=== PATIENT | female | born 1995 | race Caucasian/White ===

== ENCOUNTER 2019-07-26 19:46 | Inpatient (IN) | payer OTHER ==
[2019-07-26] MEDS ORDERED: LACTATED RINGER'S 1,000 ML IV (20:37)
[2019-07-26] MEDS ORDERED: CARBOPROST 250 MCG INJ IM (21:00)
[2019-07-26] MEDS ORDERED: MISOPROSTOL 200 MCG TAB PR (21:00)
[2019-07-26] MEDS ORDERED: IBUPROFEN 600 MG TAB PO (21:00)
[2019-07-26] MEDS ORDERED: METHYLERGONOVINE 0.2 MG INJ IM (21:00)
[2019-07-26] MEDS ORDERED: BUTORPHANOL 2 MG INJ IV ×2 (21:00)
[2019-07-26] MEDS ORDERED: OXYTOCIN 30 UNITS/LR 500 ML IV ×2 (21:00)
[2019-07-26] MEDS: LACTATED RINGER'S 1,000 ML IV (22:15)
[2019-07-26] MEDS: AMPICILLIN 2 GM/NS (PMX) 100 ML IVPB (22:19)
[2019-07-26 22:20] LABS: ADD UMIC YES; UR ASCORBIC ACID NEGATIVE (NEGATIVE); UR BILIRUBIN (Dip) NEGATIVE (NEGATIVE); UR BLOOD (Dip) NEGATIVE (NEGATIVE); UR CLARITY SLIGHTLY CLOUDY (CLEAR); UR COLOR STRAW (YELLOW); UR GLUCOSE (Dip) NEGATIVE (NEGATIVE); UR KETONES (Dip) NEGATIVE (NEGATIVE); UR LEUKOCYTE ESTERASE (Dip) 1+ Leu/ul (NEGATIVE); UR NITRITE (Dip) NEGATIVE (NEGATIVE); UR RBC 0 /HPF (0-5); UR SPECIFIC GRAVITY (Dip) 1.008 (1.003-1.030); UR SQUAMOUS EPITHELIAL CELL FEW /HPF (FEW); UR TOTAL PROTEIN (Dip) NEGATIVE (NEGATIVE); UR UROBILINOGEN (Dip) NEGATIVE (NEGATIVE); UR WBC 2 /HPF (0-5)
[2019-07-26 22:23] LABS: ADD MAN DIFF? NO
[2019-07-26 22:25] LABS: BASOPHILS % 0.4 % (0.0-2.0); EOSINOPHILS # 0.1 10^3/ul (0.0-0.5); EOSINOPHILS % 1.1 % (0.0-7.0); HEMATOCRIT 41.5 % (37.0-47.0); LYMPHOCYTES # 1.7 10^3/ul (0.8-2.9); LYMPHOCYTES % 23.9 % (15.0-51.0); MEAN CORPUSCULAR HEMOGLOBIN 33.1 pg (29.0-33.0); MEAN CORPUSCULAR HGB CONC 33.7 g/dl (32.0-37.0); MEAN CORPUSCULAR VOLUME 98.1 fl (82.0-101.0); MEAN PLATELET VOLUME 9.4 fl (7.4-10.4); MONOCYTE # 0.6 10^3/ul (0.3-0.9); NEUTROPHIL # 4.6 10^3/ul (1.6-7.5); NEUTROPHILS % 65.5 % (39.0-77.0); PLATELET COUNT 260 10^3/UL (140-415); RED BLOOD COUNT 4.23 10^6/ul (4.20-5.40); RED CELL DISTRIBUTION WIDTH 12.1 % (11.5-14.5)
[2019-07-26 22:42] LABS: ALANINE AMINOTRANSFERASE 19 IU/L (13-69); ALBUMIN 3.4 g/dl (3.3-4.9); ALBUMIN/GLOBULIN RATIO 0.94; ALKALINE PHOSPHATASE 209 IU/L (42-121); ANION GAP 8 (5-13); ASPARTATE AMINO TRANSFERASE 23 IU/L (15-46); BILIRUBIN,INDIRECT 0.2 mg/dl (0-1.1); BILIRUBIN,TOTAL 0.2 mg/dl (0.2-1.3); BLOOD UREA NITROGEN 9 mg/dl (7-20); CALCIUM 9.6 mg/dl (8.4-10.2); CARBON DIOXIDE 20 mmol/L (21-31); CHLORIDE 107 mmol/L (97-110); CREATININE 0.55 mg/dl (0.44-1.00); Estimated GFR > 60 mL/min (>60); GLUCOSE 88 mg/dl (70-220); SODIUM 135 mmol/L (135-144)
[2019-07-26 22:44] LABS: INR 0.81; PROTIME 11.3 Sec (11.9-14.9); PT RATIO 0.9
[2019-07-26 23:12] LABS: HEPATITIS B SURFACE ANTIGEN NEGATIVE (NEGATIVE)
[2019-07-27] MEDS: OXYTOCIN 30 UNITS/LR 500 ML IV (01:08)
[2019-07-27] MEDS: AMPICILLIN 1 GM/NS (PMX) 50 ML IVPB ×2 (02:46→06:22)
[2019-07-27] MEDS: LACTATED RINGER'S 1,000 ML IV ×2 (08:44→15:33)
[2019-07-27] MEDS: MISOPROSTOL 50 MCG CAPSULE PO ×3 (13:00→21:00)
[2019-07-27 16:20] LABS: RAPID PLASMA REAGIN NONREACTIVE (NR)
[2019-07-28] MEDS: LACTATED RINGER'S 1,000 ML IV ×3 (00:37→10:47)
[2019-07-28] MEDS: MISOPROSTOL 50 MCG CAPSULE PO ×3 (01:00→09:00)
[2019-07-28] MEDS ORDERED: FENTAnyl 2MCG/ML-ROPIV 0.2% 100 ML (04:39)
[2019-07-28] MEDS ORDERED: NALOXONE (0.4 MG/ML) INJ IV ×2 (05:00→14:30)
[2019-07-28] MEDS: FENTAnyl 2MCG/ML-ROPIV 0.2% 100 ML BAG EPI (11:44)
[2019-07-28] MEDS: MINERAL OIL LIGHT 10 ML VIAL TOP (12:15)
[2019-07-28] MEDS: OXYTOCIN 30 UNITS/LR 500 ML IV ×2 (12:30→17:22)
[2019-07-28] MEDS: LIDOCAINE 1% (MPF) 30 ML INJ INJ (12:47)
[2019-07-28] MEDS ORDERED: METHYLERGONOVINE 0.2 MG INJ IM (13:00)
[2019-07-28] MEDS ORDERED: NACL 0.9% 3 ML SYG IV (13:00)
[2019-07-28] MEDS ORDERED: MISOPROSTOL 200 MCG TAB PR (13:00)
[2019-07-28] MEDS ORDERED: CARBOPROST 250 MCG INJ IM (13:00)
[2019-07-28] MEDS ORDERED: OXYTOCIN 30 UNITS/LR 500 ML IV (13:00)
[2019-07-28] MEDS ORDERED: OXYCODONE/ASPIRIN (4.88/325) TAB PO ×2 (13:00)
[2019-07-28] MEDS ORDERED: DIPHENHYDRAMINE 25 MG CAP PO (13:00)
[2019-07-28] MEDS: BENZOCAINE 20% 56 ML SPRAY TOP (17:19)
[2019-07-28] MEDS: WITCH HAZEL/GLYCERIN PAD PR (17:20)
[2019-07-28] MEDS: LANOLIN HPA 1 PKT TOP (17:20)
[2019-07-28] MEDS: IBUPROFEN 600 MG TAB PO (17:23)
[2019-07-28] MEDS: SENNA/DOCUSATE NA (8.6MG/50MG) TAB PO (22:08)
[2019-07-29] MEDS: IBUPROFEN 600 MG TAB PO ×4 (00:20→17:56)
[2019-07-29 08:00] LABS: ADD MAN DIFF? NO
[2019-07-29 08:05] LABS: WHITE BLOOD COUNT 12.7 10^3/ul (4.8-10.8)
[2019-07-29 08:05] LABS: BASOPHIL # 0.1 10^3/ul (0.0-0.1); BASOPHILS % 0.4 % (0.0-2.0); EOSINOPHILS # 0.1 10^3/ul (0.0-0.5); EOSINOPHILS % 0.7 % (0.0-7.0); HEMATOCRIT 35.2 % (37.0-47.0); HEMOGLOBIN 11.8 g/dl (12.0-16.0); LYMPHOCYTES # 2.5 10^3/ul (0.8-2.9); LYMPHOCYTES % 19.3 % (15.0-51.0); MEAN CORPUSCULAR HEMOGLOBIN 33.1 pg (29.0-33.0); MEAN CORPUSCULAR HGB CONC 33.5 g/dl (32.0-37.0); MEAN CORPUSCULAR VOLUME 98.9 fl (82.0-101.0); MEAN PLATELET VOLUME 9.9 fl (7.4-10.4); MONOCYTE # 0.8 10^3/ul (0.3-0.9); MONOCYTES % 5.9 % (0.0-11.0); NEUTROPHIL # 9.3 10^3/ul (1.6-7.5); NEUTROPHILS % 72.8 % (39.0-77.0); PLATELET COUNT 236 10^3/UL (140-415); RED BLOOD COUNT 3.56 10^6/ul (4.20-5.40); RED CELL DISTRIBUTION WIDTH 12.3 % (11.5-14.5)
[2019-07-29] MEDS: SENNA/DOCUSATE NA (8.6MG/50MG) TAB PO ×2 (08:54→22:12)
[2019-07-29] MEDS: WITCH HAZEL/GLYCERIN PAD PR (22:13)
[2019-07-30] MEDS: IBUPROFEN 600 MG TAB PO ×3 (00:26→11:59)
[2019-07-30] MEDS: SENNA/DOCUSATE NA (8.6MG/50MG) TAB PO (09:23)
== END 2019-07-30 13:40 | disposition home or self-care (01) | DRG 805 ==
LOC: OBT 19:46 → PP1 07-28 15:10 → L-D 19:46 → OBT 20:30 → L-D 20:30
PROC: 10E0XZZ Delivery of Products of Conception, External Approach (ICD-10-PCS; principal; 2019-07-28)
PROC: 3E033VJ Introduction of Other Hormone into Peripheral Vein, Percutaneous Approach (ICD-10-PCS; 2019-07-28)
DX: O69.81X0 Labor and delivery complicated by cord around neck, without compression, not applicable or unspecified (principal); K83.1 Obstruction of bile duct; O26.62 Liver and biliary tract disorders in childbirth; Z3A.39 39 weeks gestation of pregnancy; Z37.0 Single live birth
CPT/HCPCS: 62322; 76815; 80053; 81001; 85025; 85610; 85730; 86592; 86850; 86900; 86901; 87340; 99464